=== PATIENT | male | born 1960 | race Caucasian/White ===

== ENCOUNTER 2020-09-29 11:30 | Emergency (ER) | payer MEDICAID ==
[~2020-09-29] VITALS: Ht 167.6 cm; Wt 70.3 kg
[2020-09-29 11:35] VITALS: BP 164/94
--- NOTE | 2020-09-29 11:44 | NUR ---
PT LAC BEING SOAKED IN WARM WATER AND BETADINE
--- NOTE | 2020-09-29 11:44 | NUR ---
PT AMBULATED TO BED 7
--- NOTE | 2020-09-29 12:00 | NUR ---
60 Y/O M BIB SELF FROM HOME, PATIENT PRESENTS TO ED WITH R LAC ON HAND FROM CUTTING AGAINST CAN OF FOOD. PT STATES HE HAS HAD HIS TDAP SHOT WITHIN THE LAST 10 YEARS. DENIES N/V/D; SKIN IS PINK/WARM/DRY; AAOX4 WITH EVEN AND STEADY GAIT; LUNGS CLEAR BL; HR EVEN AND REGULAR; PT DENIES ANY FEVER, CP, SOB, OR COUGH AT THIS TIME; PATIENT STATES PAIN OF 3/10 AT THIS TIME; VSS; PATIENT POSITIONED FOR COMFORT; HOB ELEVATED; BEDRAILS UP X2; BED DOWN. ER MD MADE AWARE OF PT STATUS. BLEEDING CONTROLLED AT THIS TIME. PMH: DENIES NKA MED: NONE
[2020-09-29] MEDS ORDERED: LIDOCAINE MPF 1% 10 MG/ML VIAL INJ ONE (12:50)
[2020-09-29] MEDS ORDERED: BACITRACIN OINT 500 UNITS/GM PKT TP ONE ×2 (14:12→14:15)
--- NOTE | 2020-09-29 14:22 | NUR ---
PT LAC CLEANED AND IRRIGATED WITH NORMAL SAILNE AND BACITRACIN WAS APPLIED TO PT'S WOUND. PT LAC DRESSED WITH NON-ADHERENT AND WRAPED WITH 3" GUAZE ROLL. RN AND PA NOTIFIED.
[2020-09-29] MEDS ORDERED: NAPR-1847 PO (14:45)
[2020-09-29 14:57] VITALS: BP 164/94
== END 2020-09-29 14:48 | disposition home or self-care (01) ==
LOC: MED 11:30
DX: S61.411A Laceration without foreign body of right hand, initial encounter (principal); J45.909 Unspecified asthma, uncomplicated; W45.8XXA Other foreign body or object entering through skin, initial encounter; Y93.89 Activity, other specified; Y92.89 Other specified places as the place of occurrence of the external cause; Y99.8 Other external cause status
CPT/HCPCS: 12001; 99282; J2001

== ENCOUNTER 2020-10-11 10:05 | Emergency (ER) | payer MEDICAID ==
[~2020-10-11] VITALS: Ht 170.2 cm; Wt 72.6 kg
[~2020-10-11 10:05] MED LIST: NAPR-1847 PO
[2020-10-11 10:06] VITALS: BP 145/93
--- NOTE | 2020-10-11 10:11 | NUR ---
Patient ambulated to bed 2. RN evaluating the patient at bedside.
--- NOTE | 2020-10-11 10:14 | NUR ---
60 YEAR OLD MALE ARRIVES TO HOSPITAL FOR SUTURE REMOVAL. PT DENIES FEVER, DENIES PUS OR DISCHARGE. WOUND CLOSED. PT AOX4, BREATHING EVEN AND UNLABORED, SKIN WARM AND DRY. BED IN LOWEST POSITION, LOCKED, BED RAIL UPX1. PMH - DENIES ALLERGIES - NKA
--- NOTE | 2020-10-11 10:19 | NUR ---
Dr. Milligan is evaluating the patient at bedside.
[2020-10-11 10:26] VITALS: BP 145/93
--- NOTE | 2020-10-11 10:27 | NUR ---
Patient discharged with v/s stable. Written and verbal after care instructions given and explained. Patient verbalized understanding. Ambulatory with steady gait. All questions addressed prior to discharge. Advised to follow up with PMD.
== END 2020-10-11 10:27 | disposition home or self-care (01) ==
LOC: MED 10:05
DX: S61.411D Laceration without foreign body of right hand, subsequent encounter (principal); J45.909 Unspecified asthma, uncomplicated; Z79.899 Other long term (current) drug therapy; X58.XXXD Exposure to other specified factors, subsequent encounter
CPT/HCPCS: 99281